=== PATIENT | male | born 1955 | race Caucasian/White ===

== ENCOUNTER → 2019-01-09 | Outpatient (CLI) | payer BC ==
[~2019-01-09] MED LIST: REGADENOSON 0.4 MG/5 ML DISP.SYRIN. IV ONE
--- NOTE | 2019-01-09 13:14 | PCVCIMAG ---
APPROVED REPORT Study performed: 01/09/2019 07:30:34 EXAM: Comprehensive 2D, Doppler, and color-flow Echocardiogram Patient Location: Echo lab Status: routine BSA: 2.31 HR: 93 bpmBP: 130/78 mmHg Rhythm: NSR Other Information Study Quality: Adequate Risk Factors: Cardiac Risk Factors: HTN, DM Indications Dyspnea 2D Dimensions IVSd: 14.11 (7-11mm) LVDd: 35.93 mm PWd: 11.75 (7-11mm)Ascending Ao: 33.87 (22-36mm) LVDs: 28.89 (25-40mm) Left Atrium: 36.26 (27-40mm) Aortic Root: 34.31 mm LV Single Plane 4CH: 56.92 % LV Single Plane 2CH: 54.98 % Biplane EF: 56.1 % Volumes Left Atrial Volume (Systole) Single Plane 4CH: 70.99 mLSingle Plane 2CH: 65.21 mL LA ESV Index: 31.00 mL/m2 Aortic Valve AoV Peak Aubrey.: 1.67 m/s AO Peak Gr.: 11.22 mmHgLVOT Max P.92 mmHg LVOT Max V: 1.32 m/s Mitral Valve E/A Ratio: 0.8 MV Decel. Time: 307.28 ms MV E Max Aubrey.: 0.71 m/s MV A Aubrey.: 0.89 m/s IVRT: 124.57 ms Pulmonary Valve PV Peak Aubrey.: 0.94 m/sPV Peak Gr.: 3.53 mmHg Pulmonary Vein P Vein S: 0.29 m/sP Vein A: 0.35 m/s P Vein D: 0.37 m/sP Vein A Dur.: 124.6 msec P Vein S/D Ratio: 0.78 Tricuspid Valve TR Peak Aubrey.: 2.42 m/s TR Peak Gr.: 23.51 mmHg TV Vmax: 0.43 m/s Left Ventricle The left ventricle is normal size. There is normal LV segmental wall motion. Mild concentric left ventricular hypertrophy. Left ventricular systolic function is normal. The left ventricular ejection fraction is within the normal range. LVEF is 55-60%. Grade I - abnormal relaxation pattern. Right Ventricle The right ventricle is normal size. The right ventricular systolic function is normal. Atria The left atrium size is normal. The right atrium size is normal. Aortic Valve The aortic valve is normal in structure. No aortic regurgitation is present. There is no aortic valvular stenosis. Mitral Valve Moderate mitral annular calcification. Trace mitral regurgitation. No evidence of mitral valve stenosis. Tricuspid Valve The tricuspid valve is normal in structure. Mild tricuspid regurgitation with PAP of 31 mmHg. Pulmonic Valve The pulmonary valve is normal in structure. Trace pulmonic regurgitation. Great Vessels The aortic root is normal in size. IVC is normal in size and collapses >50% with inspiration. Pericardium There is no pericardial effusion. There is no pleural effusion. <Conclusion> The left ventricle is normal size. LVEF is 55-60%. The aortic valve is normal in structure. Moderate mitral annular calcification. Trace mitral regurgitation. The tricuspid valve is normal in structure. Mild tricuspid regurgitation with PAP of 31 mmHg. The pulmonary valve is normal in structure. Trace pulmonic regurgitation. There is no pericardial effusion.
--- NOTE | 2019-01-10 16:14 | PCVCIMAG ---
APPROVED REPORT Imaging Protocol: Rest Tc-99m/Stress Tc-99m 1 day Study performed: 01/09/2019 09:13:32 Indication: Fatigue, Dyspnea, Abnormal EKG Patient Location: Out-Patient Stress Nurse: Irina Clark RN, Giovanna Rivera RN [place] Tech:Rosa Elena De JesusMARC abbottMT Ht: 5 ft 10 in Wt: 255 lbs BSA: 2.31 m2 HR: 102 bpm BP: 137/87 mmHg BMI: 36.58 Rhythm: Sinus Tachycardia, nonspecific ST-T abnormalities Medical History Medical History: HTN, Hyperlipidemia, Diabetic � Noninsulin Medications: ASA, Losartan, Glucophage Allergies: Lisinopril, Omeprazole, Cipro Cardiac Risk Factors: Age Pretest Chest Pain Characteristics: No chest pain Exercise History: Indeterminate Physical Disabilities: Knees Resting Data Rest SPECT myocardial perfusion imaging was performed in supine position 45 minutes following the intravenous injection of 14.9 mCi of Tc-99m Sestamibi. Time of rest injection: 829 Date: 01/09/2019 Administration Route: IV Administration Site: Right Hand Pharmacologic Stress Pharmacologic stress test was performed by injecting Regadenoson 0.4 mg IV push over 10-15 seconds immediately followed by the intravenous injection of 40.4 mCi of Tc-99m Tetrofosmin. Time of stress injection: 949 Date: 01/09/2019 Administration Route: IV Administration Site: Right Hand Gated Stress SPECT was performed 45 minutes after stress injection. The images were gated to evaluate regional wall motion and calculate left ventricular ejection fraction. Stress Test Details Stress Test: Pharmacologic stress was paired with low level exercise. Reason for pharmacologic stress test: bilateral TKA. HRMax Heart Rate (APMHR): 155 bpm Resting HR: 102 bpmTarget HR (85% APMHR): 131 bpm Max HR Achieved: 125 bpm % of APMHR: 80 Recovery HR: 111 bpm BP Resting BP: 137/87 mmHg Max BP: 139/75 mmHg Recovery BP: 141/89 mmHg ECG Resting ECG: Sinus Tachycardia, nonspecific ST-T abnormalities Stress ECG: Sinus Tachycardia, nonspecific ST-T abnormalities Arrhythmia: PVC's Recovery ECG: Sinus Tachycardia, nonspecific ST-T abnormalities Clinical Reason for Termination: Completed protocol Stress Symptoms: Abdominal discomfort, Chest tightness Exercise duration: 4 min 00 sec Exercise capacity: 1.6 METs Symptoms resolved during recovery. Stress ECG Conclusion 1. Adequate response to intravenous Lexiscan 2. Inadequate heart rate for ECG diagnosis Study Data Post stress, the left ventricular ejection was 80%.. Perfusion There is a large area of moderately reduced uptake in the entire segment of the inferior wall which is seen on the stress images as well as the resting images. This area thickens and moves normally and is most consistent with attenuation artifact. Wall Motion Normal left ventricular wall motion. Nuclear Conclusion ECG Findings: non-diagnostic Clinical Findings: negative for ischemia Nuclear Findings: negative for ischemia Exercise Capacity: not assessed Left Ventricular Function: normal 1. Low risk study 2. Post exercise Lipitor ejection fraction 80% without wall motion abnormalities <Conclusion> 1. Adequate response to intravenous Lexiscan 2. Inadequate heart rate for ECG diagnosis
== END | disposition home or self-care (01) ==
LOC: PCVCIMAG 07:40
PROVIDERS: ATTEND Internal Medicine
DX: I08.1 Rheumatic disorders of both mitral and tricuspid valves (principal); E78.5 Hyperlipidemia, unspecified; I10 Essential (primary) hypertension
CPT/HCPCS: 78452; 93017; 93306; A9500; J2785